=== PATIENT | male | born 1975 | race African-American/Black ===

== ENCOUNTER 2023-05-11 06:26 | Outpatient (CLI) | payer BC, SELFPAY ==
--- NOTE | 2023-05-11 08:05 | W.ANESCHARGE ---
Anesthesia Charges Start Date/Time Anesthesia Start Date: 05/11/23 Anesthesia Start Time: 07:20 Stop Date/Time Anesthesia Stop Date: 05/11/23 Anesthesia Stop Time: 07:59
--- NOTE | 2023-05-11 08:54 | W.ANESCHARGE ---
Anesthesia Charges Start Date/Time Anesthesia Start Date: 05/11/23 Anesthesia Start Time: 07:20 Stop Date/Time Anesthesia Stop Date: 05/11/23 Anesthesia Stop Time: 07:59
== END 2023-05-11 06:27 | disposition home or self-care (01) ==
LOC: OP CLINIC 06:27
PROVIDERS: PCP Emergency Medicine; Visit Provider Surgery
DX: Z12.11 Encounter for screening for malignant neoplasm of colon (principal); K64.9 Unspecified hemorrhoids; K63.5 Polyp of colon
CPT/HCPCS: 00811; 45385; 88305; J2704

== ENCOUNTER 2023-06-01 08:06 | Outpatient (CLI) | payer BC, SELFPAY | END 2023-06-01 08:07 | disposition home or self-care (01) | LOC: NFLDREF 06-02 11:50 | PROVIDERS: PCP Emergency Medicine; Referring Provider Emergency Medicine; Visit Provider Emergency Medicine | DX: E78.5 Hyperlipidemia, unspecified (principal); Z86.19 Personal history of other infectious and parasitic diseases; N28.9 Disorder of kidney and ureter, unspecified | CPT/HCPCS: 80048; 80061; 80076 ==

== ENCOUNTER 2023-07-07 08:35 | Outpatient (CLI) | payer BC, SELFPAY | END 2023-07-07 08:36 | disposition home or self-care (01) | PROVIDERS: PCP Emergency Medicine; Referring Provider Emergency Medicine; Visit Provider Emergency Medicine | DX: Z86.19 Personal history of other infectious and parasitic diseases (principal) | CPT/HCPCS: 80076 ==

== ENCOUNTER 2023-07-27 10:39 | Outpatient (CLI) | payer BC, SELFPAY | END 2023-07-27 10:40 | disposition home or self-care (01) | LOC: NFLDREF 10:39 | PROVIDERS: PCP Emergency Medicine; Visit Provider Emergency Medicine | DX: E78.5 Hyperlipidemia, unspecified (principal) | CPT/HCPCS: 80076 ==